=== PATIENT | female | born 1975 | race Caucasian/White ===

== ENCOUNTER 2017-03-14 09:13 | Emergency (ER) | payer MEDICAID, OTHER ==
[2017-03-14 09:13] VITALS: BMI 24.3
[2017-03-14 09:34] VITALS: BP 100/64; PULSE 87; RESP 18; TEMP 97.9; O2SAT 99
--- NOTE | 2017-03-14 10:10 | C.PDOC ---
History Of Present Illness 42 year old female presents to the ED c/o 1 day history of sinus congestion and pressure associated with a clear thick nasal discharge. Patient denies fever, chills, cough, vomit, diarrhea. Patient reports she started taking amoxicillin yesterday that she received from her 's pharmacy. Time Seen by Provider: 03/14/17 09:32 Chief Complaint (Nursing): Flu-like Symptoms History Per: Patient History/Exam Limitations: no limitations Onset/Duration Of Symptoms: Days Current Symptoms Are (Timing): Still Present Location Of Pain: Sinus/es Sick Contacts (Context): None Associated Symptoms: Sinus Drainage, Nasal Congestion. denies: Fever, Cough Recent travel outside of the [place]: No Additional History Per: Patient Past Medical History Reviewed: Historical Data, Nursing Documentation, Vital Signs Vital Signs: Last Vital Signs Temp 97.9 F 03/14/17 09:25 Pulse 87 03/14/17 09:25 Resp 18 03/14/17 10:22 BP 100/64 03/14/17 09:25 Pulse Ox 99 03/14/17 10:10 - Medical History PMH: No Chronic Diseases Denies: Chronic Kidney Disease Surgical History: No Surg Hx - [facility] Procedures MANUAL ASSIST DELIV NEC (11/02/14) Family History: States: Unknown Family Hx - Social History Hx Tobacco Use: No Hx Alcohol Use: No Hx Substance Use: No - Immunization History Hx Tetanus Toxoid Vaccination: No Hx Influenza Vaccination: No Hx Pneumococcal Vaccination: No Review Of Systems Constitutional: Negative for: Fever, Chills ENT: Positive for: Nose Discharge, Nose Congestion, Other (Sinus pressure) Respiratory: Negative for: Cough, Shortness of Breath Gastrointestinal: Negative for: Nausea, Vomiting, Abdominal Pain Skin: Negative for: Rash Neurological: Negative for: Weakness, Numbness Physical Exam - Physical Exam Appears: Non-toxic, No Acute Distress Skin: Normal Color, Warm, Dry Head: Atraumatic, Normacephalic, Tenderness (frontal and maxillary sinuses B/L) Eye(s): bilateral: Normal Inspection Ear(s): Bilateral: Normal Nose: No Discharge, No Deformity, Other (nasal turbinates bulging) Oral Mucosa: Moist Throat: Normal, No Erythema, No Exudate Neck: Normal ROM, Supple Chest: Symmetrical Cardiovascular: Rhythm Regular, No Murmur Respiratory: Normal Breath Sounds, No Rales, No Rhonchi, No Wheezing Neurological/Psych: Oriented x3, Normal Speech, Normal Cognition Gait: Steady ED Course And Treatment O2 Sat by Pulse Oximetry: 99 (On RA) Pulse Ox Interpretation: Normal Medical Decision Making Medical Decision Making: Impression : sinusitis Patient was advised to follow up with PMD in 1-2 days for further evaluation. Disposition Counseled Patient/Family Regarding: Studies Performed, Diagnosis, Need For Followup, Rx Given - Disposition Referrals: [facility] [Outside] Disposition: HOME/ ROUTINE Disposition Time: 10:01 Condition: STABLE Additional Instructions: follow up with doctor in 2 days call to make an appointment continue medications at home return to ER if symptoms worsens or progress Prescriptions: Amoxicillin 875 mg PO BID #20 tablet Oxymetazoline 0.05% [Afrin 0.05%] 2 spr NS Q12H PRN #1 bottle PRN Reason: Sinus Symptoms Pseudoephedrine HCl [Sudafed] 60 mg PO TID PRN #20 tablet PRN Reason: Nasal Congestion Instructions: Sinusitis (ED) Forms: [employer] ([place]ese) Print Language: YAKUT - Clinical Impression Clinical Impression: Sinusitis - Scribe Statement The provider has reviewed the documentation as recorded by the Scribe Justin Snyder All medical record entries made by the Scribe were at my direction and personally dictated by me. I have reviewed the chart and agree that the record accurately reflects my personal performance of the history, physical exam, medical decision making, and the department course for this patient. I have also personally directed, reviewed, and agree with the discharge instructions and disposition.
== END 2017-03-14 10:23 | disposition home or self-care (01) ==
LOC: C.ER 09:13
DX: J32.9 Chronic sinusitis, unspecified (principal)